=== PATIENT | female | born 2000 | race African-American/Black ===

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

== ENCOUNTER 2022-01-25 14:24 | Emergency (ER) | payer OTHER, SELFPAY ==
[2022-01-25 14:26] VITALS: BP 140/87; PULSE 87; RESP 16; TEMP 36.7; O2SAT 100
[2022-01-25 14:52] LABS: Appearance Urine Clear (Clear); Bilirubin Urine 1+ (Negative); Blood Urine Negative (Negative); Color Urine Yellow (Yellow); Glucose Urine UA Negative (Negative); Ketones Urine 3+ mg/dL (Negative); Leukocyte Esterase Ur Negative LEU/UL (Negative); Nitrate Urine Negative (Negative); Protein Urine Trace mg/dL (Negative); Specific Grav Ur 1.025 (1.001-1.035); pH Urine 6.5 (5.0-9.0)
[2022-01-25 14:57] LABS: Mucus Urine Heavy /lpf; Squamous Epithelial Cell Urine Many /hpf (Few)
[2022-01-25 14:59] LABS: Add Urine Microscopic? YES
[2022-01-25] MEDS: metroNIDAZOLE 250 MG TABLET 500 MG PO (15:18)
[2022-01-25] MEDS: DOXYCYCLINE HYCLATE 100 MG TABLET PO (15:18)
[2022-01-25] MEDS: cefTRIAXone 1 GM VIAL 0.5 GM IM (15:18)
--- NOTE | 2022-01-25 15:30 | ED.FEMALEGU ---
HPI - Female Genitourinary General Chief complaint: Urogenital-Female Stated complaint: STI exposure Time Seen by Provider: 01/25/22 14:40 History of Present Illness HPI Narrative: 21-year-old female presents here wanting to have STD check. She denies any symptoms, no discharge, is not aware of any STD exposure, however she states that she has been having unprotected intercourse with some new partners and she would like To be tested for everything. No dysuria. Related Data Allergies Allergy/AdvReac Type Severity Reaction Status Date / Time No Known Allergies Allergy Mild Verified 01/25/22 14:38 Review of Systems Review of Systems: CONST: No fever. HEENT: No sore throat C/V: No chest pain RESP: No cough GI: No nausea or vomiting : No dysuria. M/S: No joint pain. SKIN: No rash. NEURO: [No headache or focal numbness or weakness] PSYCH: [No depression] PMFSH Past Medical History Medical History (Updated 01/25/22 @ 17:35 by Stephanie Hernadez MD) Chlamydia Surgical History Surgical History (Updated 01/25/22 @ 17:35 by Stephanie Hernadez MD) No significant past surgical history Social History Social History Gender identity (if verbalized by the patient): Male Exam Narrative: EXAMINATION OF ORGAN SYSTEMS/BODY AREAS: Constitutional: Vital signs per nursing GENERAL: [No acute distress, non-toxic appearing.] HEAD: Normal with no signs of head trauma. EYES: EOMI, conjunctiva normal ENT: Hearing grossly intact LUNGS: Nonlabored breathing. HEART: [Regular rate and rhythm] ABD: [Soft], [nontender to palpation] : Patient declined pelvic exam EXT: Normal range of motion SKIN: [No rashes or lesions.] NEURO: [Alert and oriented x 3. No gross focal sensory or strength deficits.] PSYCH: Normal affect Course Course Emergency Course: 21-year-old female who was requesting STD check, no symptoms, she is amenable to empiric treatment at this time, vital signs stable, abdominal exam nontender, she declined pelvic, I will treat her empirically and send all STD testing including HIV, syphilis, gonorrhea and chlamydia. UA appears contaminated with multiple squamous cells. Stable for discharge home and followup with PCP. Vital Signs Vital signs: Vital Signs Temperature 98.1 F 01/25/22 14:26 Pulse Rate 87 01/25/22 14:26 Respiratory Rate 16 01/25/22 14:26 Blood Pressure 140/87 01/25/22 14:26 Pulse Oximetry 100 01/25/22 14:26 Oxygen Delivery Room Air 01/25/22 14:26 Temperature 98.1 F 01/25/22 14:26 Pulse Rate 87 01/25/22 14:26 Respiratory Rate 16 01/25/22 14:26 Blood Pressure 140/87 01/25/22 14:26 Pulse Oximetry 100 01/25/22 14:26 Oxygen Delivery Room Air 01/25/22 14:26 MDM - Female Genitourinary Lab Data Labs: Lab Results 01/25/22 01/25/22 01/25/22 Range/Units 14:40 15:15 15:15 Urine Color Yellow (Yellow) Urine Appearance Clear (Clear) Urine pH 6.5 (5.0-9.0) Ur Specific [place] 1.025 (1.001-1.035) Urine Protein Trace (Negative) mg/dL Urine Glucose (UA) Negative (Negative) mg/dL Urine Ketones 3+ H (Negative) mg/dL Ur Blood (Man) Negative (Negative) Urine Nitrate Negative (Negative) Urine Bilirubin 1+ H (Negative) Urine Urobilinogen 1.0 (<2.0) mg/dL Leukocyte Esterase Rfl Negative (Negative) MICHELLE/UL Urine RBC 3-5 H (0-2) /hpf Urine WBC 4-6 H /hpf Ur Squamous Epith Cells Many H (Few) /hpf Urine Mucus Heavy H /lpf RPR Pending HIV 1&2 Ab/P24 Ag 4thGn Negative (Negative) UCG Bedside Result Negative Reference Range: Negative Discharge Plan Discharge Clinical Impression: Concern about STD in female without diagnosis, Urinary tract infection Patient Disposition: Home, Self-Care Condition: Stable Instructions: Antibiotic Form, Sexually
[2022-01-25 16:23] LABS: HIV 1/2 Ab P24 Ag Result Negative (Negative)
[2022-01-27 06:27] LABS: Rapid Plasma Reagin Non-Reactive (NonReactive)
== END 2022-01-25 15:44 | disposition home or self-care (01) ==
PROVIDERS: Emergency Medicine; Emergency Provider Emergency Medicine; PCP Family Medicine
DX: Z11.3 Encounter for screening for infections with a predominantly sexual mode of transmission (principal); N39.0 Urinary tract infection, site not specified
CPT/HCPCS: 36415; 81001; 81025; 86592; 86703; 96372; 99283; A9270; G0432; J0696

== ENCOUNTER 2022-07-01 19:05 | Emergency (ER) | payer OTHER, SELFPAY ==
[2022-07-01 19:30] VITALS: BP 138/92; PULSE 84; RESP 20; TEMP 37.3; O2SAT 100
[2022-07-01 21:07] LABS: Influenza A QL RT-PCR Positive (Negative); Influenza B QL RT-PCR Negative (Negative); SARS-CoV-2 RNA PCR Negative
[2022-07-01] MEDS: SODIUM CHLORIDE 0.9% IV 1,000 ML 999 ML IV CONT (22:23)
[2022-07-01 22:39] LABS: Basophils Percent Auto 0.4 % (0.2-1.2); Eosinophils Percent Auto 0.2 % (0-4.4); Hematocrit 36.4 % (37.0-47.0); Immature Granulocyte Absolute 0.03 K/mm3 (0.00-0.031); Immature Granulocyte Percent A 0.6 % (0-0.5); Lymphocytes Absolute Auto 0.41 K/mm3 (0.9-3.2); Lymphocytes Percent Auto 8.2 % (18.3-44.2); Mean Corpuscular HGB Conc 35.7 g/dl (32-36); Mean Corpuscular Hemoglobin 29.7 pg (26-34); Mean Corpuscular Volume 83.1 fl (80-100); Mean Platelet Volume 11.2 fl (7.4-10.4); Monocytes Absolute Auto 0.6 K/mm3 (0.1-0.6); Monocytes Percent Auto 11.8 % (2.6-8.5); Neutrophils Absolute Auto 3.9 K/mm3 (1.3-6.7); Neutrophils Percent Auto 78.8 % (45.5-73.1); Platelet Count Result 212 k/mm3 (150-375); Red Blood Count 4.38 M/mm3 (4.2-5.4); Red Cell Distribution Width 12.9 % (11.5-14.5)
[2022-07-01 22:41] LABS: Appearance Urine Clear (Clear); Bilirubin Urine Negative (Negative); Blood Urine Trace-intact (Negative); Color Urine Yellow (Yellow); Glucose Urine UA Negative (Negative); Ketones Urine 3+ mg/dL (Negative); Leukocyte Esterase Ur Trace LEU/UL (Negative); Nitrate Urine Negative (Negative); Protein Urine Negative (Negative); Specific Grav Ur 1.015 (1.001-1.035); Urobilinogen Urine 0.2 mg/dL (<2.0)
[2022-07-01 22:45] LABS: Add Urine Microscopic? YES; Mucus Urine Rare /lpf; RBC Urine 0-2 /hpf (0-2); Squamous Epithelial Cell Urine Moderate /hpf (Few)
[2022-07-01 22:52] LABS: Alanine Aminotransferase 18 U/L (6-35); Albumin Level 4.9 g/dL (3.7-5.6); Alkaline Phosphatase 67 U/L (45-116); Anion Gap 10 mmol/L (8-16); Aspartate Amino Transferase 32 U/L (14-36); Bilirubin,Total 1.1 mg/dL (0.2-1.3); Blood Urea Nitrogen 5 mg/dL (8-21); Carbon Dioxide 24 mmol/L (22-30); Chloride 100 mmol/L (98-107); Estimated Glomerular Filt Rate > 60; Glucose 94 mg/dL (65-110); Potassium 3.6 mmol/L (3.4-5.0); Sodium 134 mmol/L (134-143)
--- NOTE | 2022-07-01 22:58 | ED.ABDPAIN ---
HPI - Abdominal Pain General Chief Complaint: Abdominal Pain Stated Complaint: FLU S/SX Time Seen by Provider: 07/01/22 20:55 History of Present Illness HPI narrative: 21-year-old female presents the emergency room with multiple complaints. Patient states that she has a productive and painful cough, body aches, fever, lower abdominal pain. Patient states that she found out she was yesterday. Patient patient denies dysuria, diarrhea or constipation. Denies vaginal bleeding. Denies shortness of breath or difficulty breathing. Denies fever. Patient states that she took [id number] cough and cold preparation yesterday and today for her symptoms. Related Data Allergies Allergy/AdvReac Type Severity Reaction Status Date / Time No Known Allergies Allergy Mild Verified 01/25/22 14:38 Review of Systems Review of Systems: CONSTITUTIONAL: Denies fever, chills, or sweats. EYES: Denies visual changes, redness, or discharge. ENT: Denies rhinorrhea, congestion, sore throat, or otalgia. CARDIOVASCULAR: Reports chest pain RESPIRATORY: Reports cough GASTROINTESTINAL: Reports lower abdominal pain GENITOURINARY: Denies dysuria or hematuria. SKIN: Denies rash or itching. MUSCULOSKELETAL: Denies back pain, joint pain, or myalgia. NEUROLOGIC: Denies headache, numbness, dizziness, or weakness. PSYCHIATRIC: Denies anxiety or depression. [facility] Past Medical History Medical History (Updated 07/01/22 @ 23:49 by Heron Garcia APRN) Chlamydia Surgical History Surgical History (Updated 01/25/22 @ 17:35 by Stephanie Hernadez MD) No significant past surgical history Social History Social History Gender identity (if verbalized by the patient): Male Exam Narrative: GENERAL: Well-appearing, well-nourished, no physical limitations, and in no acute distress. HEAD: Normocephalic, atraumatic. EYES: Conjunctivae normal, PERRLA and EOMI. CHEST: Clear to auscultation. No respiratory distress. No wheezes rales or rhonchi. HEART: Regular rate and rhythm. No murmur heard. Normal peripheral pulses. ABDOMEN: Soft, suprapubic tenderness, nondistended, normal active bowel sounds. BACK: No CVA tenderness EXTREMITIES: Normal range of motion. No edema. No clubbing or cyanosis SKIN: Warm, dry, no rash. No noted wounds NEURO: No focal deficits. Alert and oriented x3. MAEW. CN's II-XI intact bilaterally, normal gait PSYCH: Cooperative. Normal mood and affect. Course Course Emergency Course: Patient reports improvement after a liter of fluid. Vital Signs Vital signs: Vital Signs Temperature 37.3 C 07/01/22 19:30 Pulse Rate 84 07/01/22 19:30 Respiratory Rate 20 07/01/22 19:30 Blood Pressure 138/92 H 07/01/22 19:30 Pulse Oximetry 100 07/01/22 19:30 Oxygen Delivery Room Air 07/01/22 19:30 Temperature 37.3 C 07/01/22 19:30 Pulse Rate 84 07/01/22 19:30 Respiratory Rate 20 07/01/22 19:30 Blood Pressure 138/92 H 07/01/22 19:30 Pulse Oximetry 100 07/01/22 19:30 Oxygen Delivery Room Air 07/01/22 19:30 MDM - Abdominal Pain Lab Data Result diagrams: 07/01/22 22:22 07/01/22 22:22 Labs: Lab Results 07/01/22 07/01/22 07/01/22 Range/Units 20:03 22:21 22:22 WBC 5.0 (4.5-10.0) K/mm3 RBC 4.38 (4.2-5.4) M/mm3 Hgb 13.0 (12.0-15.0) g/dL Hct 36.4 L (37.0-47.0) % MCV 83.1 (80-100) fl MCH 29.7 (26-34) pg MCHC 35.7 (32-36) g/dl RDW 12.9 (11.5-14.5) % Plt Count 212 (150-375) k/mm3 MPV 11.2 H (7.4-10.4) fl Immature Gran % (Auto) 0.6 H (0-0.5) % Neut % (Auto) 78.8 H (45.5-73.1) % Lymph % (Auto) 8.2 L (18.3-44.2) % Teller % (Auto) 11.8 H (2.6-8.5) % Eos % (Auto) 0.2 (0-4.4) % Baso % (Auto) 0.4 (0.2-1.2) % Lymph # (Auto) 0.41 L (0.9-3.2) K/mm3 Teller # (Auto) 0.6 (0.1-0.6) K/mm3 Eos # (Auto) 0.0 (0-0.3) K/mm3 Baso # (Auto) 0.0
[2022-07-01 23:07] LABS: Beta HCG Quantitative 28.69 mIU/ML; Troponin I < 0.012 ng/mL (0.000-0.034)
[2022-07-02 00:04] VITALS: BP 130/84; PULSE 82; RESP 20; O2SAT 98
== END 2022-07-02 00:05 | disposition home or self-care (01) ==
PROVIDERS: Emergency Provider Nurse Practitioner Family; PCP Family Medicine
DX: J10.1 Influenza due to other identified influenza virus with other respiratory manifestations (principal); Z20.822 Contact with and (suspected) exposure to COVID-19
CPT/HCPCS: 36415; 80053; 81001; 84484; 84702; 85025; 87502; 96360; 99284; J7030; U0003; U0005

== ENCOUNTER 2024-03-19 15:22 | Emergency (ER) | payer OTHER, SELFPAY ==
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
[2024-03-19 15:40] VITALS: BP 147/77; PULSE 88; RESP 16; TEMP 36.7; O2SAT 100
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
--- NOTE | 2024-03-19 19:04 | PC.NURSE ---
patient to cat scan
[2024-03-19] MEDS: ACETAMINOPHEN 500 MG TABLET 1000 MG PO (19:18)
[2024-03-19 21:03] VITALS: BP 117/67; PULSE 68; RESP 16; O2SAT 98
== END 2024-03-19 21:04 | disposition home or self-care (01) ==
PROVIDERS: Emergency Provider Physician Assistant; PCP Family Medicine
DX: S00.12XA Contusion of left eyelid and periocular area, initial encounter (principal); S00.11XA Contusion of right eyelid and periocular area, initial encounter; M25.511 Pain in right shoulder; V49.40XA Driver injured in collision with unspecified motor vehicles in traffic accident, initial encounter
CPT/HCPCS: 70450; 70486; 72125; 73030; 99284; A4565; A9270

== ENCOUNTER 2025-01-09 17:50 | Emergency (ER) | payer OTHER, SELFPAY ==
[2025-01-09 17:51] VITALS: BP 149/79; PULSE 89; RESP 16; TEMP 36.3; O2SAT 99
--- OUTSIDE RECORDS SUMMARY | 2025-01-09 17:51 | XMS_ITS | Clinical Summary ---
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 Gender Identity Not on file Sexual Orientation Not on file Plan of Treatment Health Maintenance Due Date Last Done Comments Hepatitis C Virus (HCV) Screening 2002 TdaP Immunization 2002 Human Papillomavirus (HPV) Immunization (1 - 3-dose series) 2017 Meningococcal B Immunization (1 of 2 - Standard) 2018 Hepatitis B Immunization (1 of 3 - 19+ 3-dose series) 2021 Pap Smear 2023 Influenza Immunization (#1) 2024 SARS-COV-2 Immunization ( season) 2024 Respiratory Syncytial Virus (RSV) Immunization (Adult) (1 - 1-dose 75+ series) 2077 Meningococcal Immunization (ACWY) Aged Out No longer eligible based on patient's age to complete this topic Pneumococcal Immunization Combined Aged Out No longer eligible based on patient's age to complete this topic Rotavirus Immunization Aged Out No lo nger eligible based on patient's age to complete this topic
--- OUTSIDE RECORDS SUMMARY | 2025-01-09 17:51 | XMS_ITS | Clinical Summary ---
Author Organization [facility] Address [address] [place] [id number] Care Team Providers Care Certified Nurse Operating Room Name Role Phone None, Provider MD Primary Care Provider Unavaila ble Allergies Active Allergy Reactions Criticality Noted Date Comments Morphine Hives 12/08/2024 Medications nitrofurantoin, macrocrystal-mo nohydrate, (MACROBID) 100 MG capsule 12/05/2024 Active amoxicillin-cla vulanate (AUGMENTIN) 875-125 MG tablet Take 1 tablet (875 mg total) by mouth 2 (two) times daily for 7 days. 14 tablet 12/08/2024 trimethoprim-po lymyxin b (POLYTRIM) ophthalmic solution Place 1 drop into the right eye every 4 (four) hours for 7 days. 10 mL 12/08/2024 5 Encounters Date Type Department Care Team Description 12/08/2024 10:00 AM CDT - 12/08/2024 10:57 AM CDT Hospital Encounter [facility] Care [address] [place] [id number] Paula Finch FNP Eye Swelling Discharge Disposition: Home or Self Care (Routine Discharge) 12/08/2024 Travel from Last 3 Months Social History Tobacco Use Types Packs/Day Years Used Date Smoking Tobacco: Never Smokeless Tobacco: Current Tobacco Cessation:Ready to Q uit: Not Asked; Counseling Given: Not Answered Comments No Sex and Gender Information Value Date Recorded Sex Assigned at Female 12/08/2024 9:50 AM CDT Legal Sex Female 7:50 PM CDT Gender Identity Not on file Sexual Orientation Not on file Last Filed Vital Signs Vital Sign Reading Time Taken Comments Blood Pressure 147/84 12/08/2024 10:05 AM CDT Pulse 76 12/08/2024 10:05 AM CDT Temperature 36.9 C (98.5 F) 12/08/2024 10:05 AM CDT Respiratory Rate 18 12/08/2024 10:05 AM CDT Oxygen Saturation 100% 12/08/2024 10:05 AM CDT Inhaled Oxygen Concentration - - Weight 70.8 kg (156 lb) 12/08/2024 10:05 AM CDT Height 149.9 cm (4' 11 ) 12/08/2024 10:05 AM CDT Body Mass Index 31.51 12/08/2024 10:05 AM CDT Plan of Treatment Health Maintenance Due Date Last Done Comments Cervical Cancer Screening Pap Smear (Age 21 to 29) Every 3 Years 2002 Cervical Cancer Screening 2002 Annual Physical 2005 Meningococcal B Vaccine (1 of 2 - Standard) 2018 Hepatitis C 2020 DTaP, Tdap and Td Vaccines (7 - Td or Tdap) 11/29/2023 11/28/2013, 04/20/2007, 05/24/2004, Additional history exists COVID-19 Vaccine ( - season) 2024 05/02/2022, 06/14/2021, 05/21/2021 Hepatitis B Vaccines Completed 09/05/2003, 02/22/2003, 2002 Pneumococcal Vaccine: Pediatrics (0 to 5 Years) and At-Risk Patients (6 to 49 Years) Completed 05/27/2005, 10/23/2003, 04/24/2003 Meningococcal Vaccine Aged Out 11/28/2013 No xavi janis eligible based on patient's age to complete this topic HPV Vaccines Completed 01/31/2015, 10/2013, 11/28/2013 RSV Immunizations Under 20 Months Aged Out No longer eligible based on patient's age to complete this topic Insurance Care Teams Certified Nurse Operating Room Relationship Specialty Start Date End Date None, Provider, MD PCP - General UNKNOWN PHYSICIAN SPECIALTY 12/08/24
[2025-01-09] MEDS: ONDANSETRON INJ 4 MG/2 ML VIAL IV PUSH (18:18)
[2025-01-09] MEDS: LACTATED RINGERS 1,000 ML 999 ML IV CONT (18:18)
[2025-01-09 18:32] LABS: Basophils Percent Auto 0.1 % (0.2-1.2); Eosinophils Percent Auto 0.2 % (0-4.4); Hematocrit 40.2 % (37.0-47.0); Hemoglobin 13.9 g/dL (12.0-15.0); Immature Granulocyte Absolute 0.05 K/mm3 (0.00-0.031); Immature Granulocyte Percent A 0.5 % (0-0.5); Lymphocytes Absolute Auto 0.49 K/mm3 (0.9-3.2); Lymphocytes Percent Auto 4.9 % (18.3-44.2); Mean Corpuscular HGB Conc 34.6 g/dl (32-36); Mean Corpuscular Hemoglobin 28.6 pg (26-34); Mean Corpuscular Volume 82.7 fl (80-100); Mean Platelet Volume 11.1 fl (7.4-10.4); Monocytes Absolute Auto 0.6 K/mm3 (0.1-0.6); Monocytes Percent Auto 5.7 % (2.6-8.5); Neutrophils Percent Auto 88.6 % (45.5-73.1); Platelet Count Result 240 k/mm3 (150-375); Red Blood Count 4.86 M/mm3 (4.2-5.4); Red Cell Distribution Width 12.9 % (11.5-14.5); White Blood Count 10.1 K/mm3 (4.5-10.0)
--- NOTE | 2025-01-09 18:33 | ED_ITS ---
HPI - General Adult General Chief complaint: Nausea/Vomiting/Diarrhea Stated complaint: NVD,headache Time Seen by Provider: 01/09/25 17:59 History of Present Illness HPI narrative: 24-year-old female present to the emergency department for evaluation for nausea vomiting and episode of diarrhea. Patient reports that she has had multiple episodes of nausea and vomiting and does have some upper abdominal pain. Patient does report that she has have issues with nausea vomiting monthly but states that is typically associated with her menstrual cycle. Patient does admit to daily THC use. Related Data Home Medications ?Medication ?Instructions ?Recorded ?Confirmed ?Last Taken ?Type No Home Medications 03/26/24 03/26/24 Unknown History Allergies Allergy/AdvReac Type Severity Reaction Status Date / Time morphine Allergy Chest Pain Verified 01/09/25 17:51 Review of Systems 2 Review of Systems: All systems reviewed & are unremarkable except as noted in HPI and below PMFSH Past Medical History Medical History (Updated 01/09/25 @ 19:34 by Jose Wolfe MD) Wellness examination Chlamydia Surgical History Surgical History No significant past surgical history Family History Family History Father Alcoholism Mother Hypertension Social History Social History (Updated 03/24/24 @ 14:49 by Yoana Guidry) Social History: Single Years smoked: 2 Smoking status: Smoker, status unknown (vaping nicotine) Tobacco type: e-cigarettes/vaping Alcohol intake: current Alcohol use details: Occasionally Substance use: current Substance use type: marijuana Do You Feel Safe in your Home?: Yes Lack of Transportation: No Lack of Food: Never True Current Housing: I Have Housing Concerned About Future Housing: No Difficulty Paying Gas/Electric Bills: No Difficulty Paying for Meds: No Currently Unemployed: No Education: Don't Know Difficulty w/ Childcare or Family Care: No Living arrangements: with family Occupation/Education: occupation 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 HEAD: normocephalic, atraumatic. EYES: PERRLA/EOMI, conjunctivae clear. NOSE: Normal no drainage EARS:TMS clear with good light reflex. THROAT: Pharynx clear, no exudate. NECK: Supple. No adenopathy, no masses. RESPIRATORY: Airway patent, respirations nonlabored. Clear to auscultation bilaterally, no rales, rhonchi, wheezing. CARDIOVASCULAR: Regular rate and rhythm without murmurs rubs or gallops. ABDOMINAL: Soft, nontender, nondistended, normal bowel sounds MUSCULOSKELETAL: Moves all extremities. Strength/ROM intact, No edema, No calf tenderness. NEURO: Alert. Cranial nerves II through XII intact. grossly intact SKIN: Warm, dry. Normal Color Course Vital Signs Vital signs: Vital Signs Temperature 97.3 F L 01/09/25 17:51 Pulse Rate 89 01/09/25 17:51 Respiratory Rate 16 01/09/25 17:51 Blood Pressure 149/79 H 01/09/25 17:51 Pulse Oximetry 99 01/09/25 17:51 Oxygen Delivery Room Air 01/09/25 17:51 Temperature 97.3 F L 01/09/25 17:51 Pulse Rate 85 01/09/25 19:16 Respiratory Rate 16 01/09/25 19:16 Blood Pressure 149/81 H 01/09/25 19:16 Pulse Oximetry 100 01/09/25 19:16 Oxygen Delivery Room Air 01/09/25 17:51 Medical Decision Making [facility] Narrative Medical decision making narrative: 24-year-old female present to the emergency department for evaluation for nausea vomiting with associated upper abdominal pain. Patient was afebrile but does have a leukocytosis of 10.1 hemoglobin of 13.9. Patient has no acute abnormalities on her CMP UA was positive for ketones was also high for white blood cells many squamous cells and I bacteria. Urine culture was ordered. Patient was treated with IV fluids. On re-evaluation patient states she does feel improved. Vital Signs Vital Signs: Vital Signs Temperature 97.3 F L 01/09/25 17:51 Pulse Rate 89 01/09/25 17:51 Respiratory Rate 16 01/09/25 17:51 Blood Pressure 149/79 H 01/09/25 17:51 Pulse Oximetry 99 01/09/25 17:51 Oxygen Delivery Room Air 01/09/25 17:51 Temperature 97.3 F L 01/09/25 17:51 Pulse Rate 85 01/09/25 19:16 Respiratory Rate 16 01/09/25 19:16 Blood Pressure 149/81 H 01/09/25 19:16 Pulse Oximetry 100 01/09/25 19:16 Oxygen Delivery Room Air 01/09/25 17:51 Lab Data 01/09/25 18:16 01/09/25 18:16 Labs: Lab Results 01/09/25 01/09/25 Range/Units 18:05 18:16 WBC 10.1 H (4.5-10.0) K/mm3 RBC 4.86 (4.2-5.4) M/mm3 Hgb 13.9 (12.0-15.0) g/dL Hct 40.2 (37.0-47.0) % MCV 82.7 (80-100) fl MCH 28.6 (26-34) pg MCHC 34.6 (32-36) g/dl RDW 12.9 (11.5-14.5) % Plt Count 240 (150-375) k/mm3 MPV 11.1 H (7.4-10.4) fl Immature Gran % (Auto) 0.5 (0-0.5) % Neut % (Auto) 88.6 H (45.5-73.1) % Lymph % (Auto) 4.9 L (18.3-44.2) % [place] % (Auto) 5.7 (2.6-8.5) % Eos % (Auto) 0.2 (0-4.4) % Baso % (Auto) 0.1 L (0.2-1.2) % Lymph # (Auto) 0.49 L (0.9-3.2) K/mm3 [place] # (Auto) 0.6 (0.1-0.6) K/mm3 Eos # (Auto) 0.0 (0-0.3) K/mm3 Baso # (Auto) 0.0 (0.0-0.1) K/mm3 Abs Immat Gran (auto) 0.05 H (0.00-0.031) K/mm3 Absolute Neuts (auto) 9.0 H (1.3-6.7) K/mm3 Absolute Nucleated RBC 0.000 (0.0-0.012) K/mm3 Nucleated RBC % 0.0 (0.0-0.2) % Sodium 137 (137-145) mmol/L Potassium 3.5 (3.4-5.0) mmol/L Chloride 103 (98-107) mmol/L Carbon Dioxide 24 (22-30) mmol/L Anion Gap 10 (4-12) mmol/L BUN 14 D (7-17) mg/dL Creatinine 0.70 (0.7-1.0) mg/dL Estim Creat Clear Calc Not Reportable Estimated GFR > 60 (59 - ) Glucose 96 (65-110) mg/dL Calcium 9.1 (8.4-10.2) mg/dL Total Bilirubin 1.5 H (0.2-1.3) mg/dL AST 24 (14-36) U/L ALT 15 (6-35) U/L Alkaline Phosphatase 81 (38-126) U/L Total Protein 8.0 (6.3-8.2) g/dL Albumin 4.7 (3.5-5.1) g/dL Urine Color Dark yellow (Yellow) Urine Appearance Cloudy H (Clear) Urine pH 5.5 (5.0-9.0) Ur Specific [place] 1.034 (1.001-1.035) Urine Protein 1+ H (Negative) mg/dL Urine Glucose (UA) Negative (Negative) mg/dL Urine Ketones 2+ H (Negative) mg/dL Ur Blood (Man) Negative (Negative) Urine Nitrate Negative (Negative) Urine Bilirubin Negative (Negative) Urine Urobilinogen 1.0 (<2.0) mg/dL Leukocyte Esterase Rfl Negative (Negative) MICHELLE/UL Urine RBC 0-2 (0-2) /hpf Urine WBC 6-10 H (0-3) /hpf Ur Squamous Epith Cells Many H (Few) /hpf Urine Bacteria 3+ H /hpf Urine Casts 3-5 Hyaline Casts Present (None) /lpf POC Urine HCG, Qual Negative (Negative) Discharge Plan Discharge Clinical Impression: Gastritis, Esophagitis, Nausea & vomiting Patient Disposition: Home Condition: Stable Instructions: Antibiotic Form, Clear Liquid Diet (ED), Acute Nausea and Vomiting (ED) Additional Instructions: Zofran as needed for nausea control. Clear liquid diet for the next 1-3 days. Advance to bland diet as tolerated. Omeprazole as directed to help with gastritis/esophagitis. Have close follow-up with GI. If you have any worsening symptoms please call or return to the emergency department. Continue to educate yourself on cannabinoid hyperemesis syndrome. Patient Language: Jordanian Prescriptions: New ondansetron 4 mg tablet,disintegrating 4 mg PO Q8H PRN (Reason: nausea and vomiting) Qty: 14 0RF No Action No Home Medications Follow-up/Referrals: En Vergara MD [Physician] - Janis Emery MD [Primary Care Provider] -
[2025-01-09 18:45] LABS: BEDSIDEPREGUCG Negative (Negative)
[2025-01-09 18:46] LABS: Alanine Aminotransferase 15 U/L (6-35); Albumin Level 4.7 g/dL (3.5-5.1); Alkaline Phosphatase 81 U/L (38-126); Anion Gap 10 mmol/L (4-12); Aspartate Amino Transferase 24 U/L (14-36); Bilirubin,Total 1.5 mg/dL (0.2-1.3); Blood Urea Nitrogen 14 mg/dL (7-17); Calcium 9.1 mg/dL (8.4-10.2); Carbon Dioxide 24 mmol/L (22-30); Chloride 103 mmol/L (98-107); Estimated Glomerular Filt Rate > 60; Glucose 96 mg/dL (65-110); Potassium 3.5 mmol/L (3.4-5.0); Sodium 137 mmol/L (137-145)
[2025-01-09 19:08] LABS: Add Urine Microscopic? YES; Appearance Urine Cloudy (Clear); Bacteria Urine 3+ /hpf; Bilirubin Urine Negative (Negative); Blood Urine Negative (Negative); Color Urine Dark Yellow (Yellow); Glucose Urine UA Negative (Negative); Hyaline Casts Urine Present /lpf; Ketones Urine 2+ mg/dL (Negative); Leukocyte Esterase Ur Negative LEU/UL (Negative); Nitrate Urine Negative (Negative); Protein Urine 1+ mg/dL (Negative); RBC Urine 0-2 /hpf (0-2); Specific Grav Ur 1.034 (1.001-1.035); Squamous Epithelial Cell Urine Many /hpf (Few); pH Urine 5.5 (5.0-9.0)
[2025-01-09 19:16] VITALS: BP 149/81; PULSE 85; RESP 16; O2SAT 100
[2025-01-09] MEDS: BELLADONNA ALK/PHENOB ELIX 10 ML, MAG HYDROX/ALUMINUM HYD/SIMETH 30 ML, LIDOCAINE 2% VI... PO (19:25)
[2025-01-09] MEDS: FAMOTIDINE 20 MG/2 ML VIAL IV PUSH (19:26)
[2025-01-09] MEDS: PANTOPRAZOLE SODIUM IV 40 MG VIAL IV PUSH (19:26)
[2025-01-09 19:46] VITALS: BP 142/70; PULSE 92; RESP 16; O2SAT 100
== END 2025-01-09 19:48 | disposition home or self-care (01) ==
PROVIDERS: Emergency Provider Emergency Medicine; PCP Family Medicine
DX: K29.70 Gastritis, unspecified, without bleeding (principal); K20.90 Esophagitis, unspecified without bleeding; R11.2 Nausea with vomiting, unspecified; F17.290 Nicotine dependence, other tobacco product, uncomplicated
CPT/HCPCS: 36415; 80053; 81001; 81025; 85025; 96361; 96374; 96375; 99284; A9270; J2405; J2470; J7120

== ENCOUNTER 2025-05-05 02:21 | Day surgery (SDC) | payer OTHER, SELFPAY ==
[2025-04-25 08:58] VITALS: BMI 29.3
--- OUTSIDE RECORDS SUMMARY | 2025-05-05 02:23 | XMS_ITS | Clinical Summary ---
Author Organization [facility] Address [address] [place] [id number] Care Team Providers Care Rn Neurosurgical Name Role Phone None, Provider MD Primary Care Provider Unavaila ble Allergies Active Allergy Reactions Criticality Noted Date Comments Morphine Hives 12/08/2024 Medications nitrofurantoin, macrocrystal-monoh ydrate, (MACROBID) 100 MG capsule 12/05/2024 Acti ve Social History Tobacco Use Types Packs/Day Years [...] 10:05 AM CDT Height 149.9 cm (4' 11) 12/08/2024 10:05 AM CDT Body Mass Index [...] 05/24/2004, Additional history exists COVID-19 Vaccine ( season) 2025 05/02/2022, 06/14/2021, 05/21/2021 Hepatitis B Vaccines Completed [...] patient's age to complete this topic Insurance [facility] Care Teams Rn Neurosurgical Relationship Specialty Start Date End Date None, Provider, MD PCP - General UNKNOWN PHYSICIAN SPECIALTY 12/08/24
--- OUTSIDE RECORDS SUMMARY | 2025-05-05 02:23 | XMS_ITS | Clinical Summary ---
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
[2025-05-05] MEDS: LACTATED RINGERS 1,000 ML 150 ML IV CONT (06:44)
[2025-05-05 06:45] VITALS: BP 143/75; PULSE 83; RESP 16; TEMP 36.1; O2SAT 100
--- NOTE | 2025-05-05 07:12 | PM.HPGS ---
History of Present Illness History of Present Illness Consent: Risks, benefits, and alternatives have been discussed and questions answered. Patient agrees to proceed with procedure. Chief complaint: Epigastric pain Narrative: Caleb Hay is a 24 year old female here for first EGD, h/o nausea on zofran and gerd, also loose stools Review of Systems Review of Systems: All systems reviewed & are unremarkable except as noted in HPI and below PMFSH Past Medical History Medical History (Updated 05/05/25 @ 07:13 by En Vergara MD) GERD (gastroesophageal reflux disease) Nausea Epigastric pain Wellness examination Chlamydia Surgical History Surgical History No significant past surgical history Family History Family History Father Alcoholism Mother Hypertension Social History Social History Social History: Single Years smoked: 4 Smoking status: Smoker, status unknown Tobacco type: e-cigarettes/vaping Alcohol intake: current Drinks per week: 3 Substance use: current Substance use type: marijuana Do You Feel Safe in your Home?: Yes Lack of Transportation: No Lack of Food: Never True Current Housing: I Have Housing Concerned About Future Housing: No Difficulty Paying Gas/Electric Bills: No Difficulty Paying for Meds: No Currently Unemployed: No Education: Don't Know Difficulty w/ Childcare or Family Care: No Living arrangements: alone Occupation/Education: occupation 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 Gender identity (if verbalized by the patient): Female Sexual Orientation (if Verbalized by the Patient): Straight or Heterosexual Spiritual care concerns: No Meds Home Medications and Allergies Home Medications ?Medication ?Instructions ?Recorded ?Confirmed ?Type hydrocortisone 2.5 % topical cream 1 applic RECTAL BID PRN 01/26/25 04/25/25 Rx with perineal applicator hemorrhoids #30 grams ondansetron 4 mg disintegrating 4 mg PO Q8H PRN nausea and 01/26/25 05/05/25 Rx tablet vomiting #14 tabs Allergies Allergy/AdvReac Type Severity Reaction Status Date / Time morphine Allergy Chest Pain Verified 05/05/25 06:24 Vital Signs Vital Signs - 24 hr 05/05/25 06:45 Temperature 96.9 F L Pulse Rate 83 Respiratory Rate 16 Blood Pressure 143/75 H Pulse Oximetry 100 Oxygen Delivery Room Air Exam Const: General: comfortable and no acute distress HENMT: Face/Nose/Sinus: Normal nares present Eyes: General: appearance normal, both eyes and all related structures Neck: Neck: no JVD Resp: Auscultation: clear to auscultation bilaterally Cardio: Rate: regular rate Rhythm: regular rhythm GI: Inspection: non-distended GI Palp: Yes Soft to palpation Skin: General skin exam: normal color Neuro: Speech: normal speech Extrem: General: normal to inspection Psych: Mental Status: mental status grossly normal Assessment and Plan Assessment and plan (1) Nausea: Code(s): R11.0 - Nausea Status: Acute Assessment and Plan: egd with bx (2) GERD (gastroesophageal reflux disease): Code(s): K21.9 - Gastro-esophageal reflux disease without esophagitis Status: Acute
--- NOTE | 2025-05-05 07:30 | S_PTH ---
PATIENT: Caleb Hay LOC: [facility]#:[id number] AGE/SX: 24/F ROOM: RE05/05/[address]: En Vergara MD : 2000 BED: DIS: 05/05/2025 SPEC #: [id number] RECD: 05/05/25 07:39 STATUS: BRIELLE REJanis #: [id number] KEZIA: 05/05/25 07:[address]: En Vergara DEPT: [facility] Surgical RECD BY: Khloe Contreras ENTERED: 05/05/25 07:39 SP TYPE: Surgical OTHR DR: SURVEILLANCE CAMERA TECHNICIAN PHYSICIAN Tissues: A - Gastric Biopsy B - Small Bowel Bx Procedures: Hematoxylin and Eosin Stain Gross and Microscopic Level 4
--- NOTE | 2025-05-05 07:30 | WPDANESEPPF ---
Anes - Initial Pre Proc Eval Procedure: Operation Date: 05/05/25 07:30 Proposed Procedures p Esophagogastroduodenoscopy - En Vergara MD Date/Time: 05/05/25 07:30 Surgeon: En Vergara MD Pre Op Diagnosis: Epigastric pain Patient Data Age: 24 Gender: F Height: 1.5 m Weight: 66.5 kg Last Vital Signs Temp 36.1 C L 05/05/25 06:45 Pulse 83 05/05/25 06:45 Resp 16 05/05/25 06:45 BP 143/75 H 05/05/25 06:45 Pulse Ox 100 05/05/25 06:45 O2 Del Method Room Air 05/05/25 06:45 Allergies Allergy/AdvReac Type Severity Reaction Status Date / Time morphine Allergy Chest Pain Verified 05/05/25 06:24 Home Medications ?Medication ?Instructions ?Recorded ?Confirmed ?Type hydrocortisone 2.5 % topical cream 1 applic RECTAL BID PRN 01/26/25 04/25/25 Rx with perineal applicator hemorrhoids #30 grams ondansetron 4 mg disintegrating 4 mg PO Q8H PRN nausea and 01/26/25 05/05/25 Rx tablet vomiting #14 tabs Patient hx anesthesia problems: none Family hx anesthesia problems: none Results Review: All pre-operative results and documents have been reviewed as part of the pre-operative evaluation. [facility] Past Medical History Medical History (Updated 05/05/25 @ 07:13 by En Vergara MD) GERD (gastroesophageal reflux disease) Nausea Epigastric pain Wellness examination Chlamydia Surgical History Surgical History No significant past surgical history Family History Family History Father Alcoholism Mother Hypertension Social History Social History Social History: Single Years smoked: 4 Smoking status: Smoker, status unknown Tobacco type: e-cigarettes/vaping Alcohol intake: current Drinks per week: 3 Substance use: current Substance use type: marijuana Do You Feel Safe in your Home?: Yes Lack of Transportation: No Lack of Food: Never True Current Housing: I Have Housing Concerned About Future Housing: No Difficulty Paying Gas/Electric Bills: No Difficulty Paying for Meds: No Currently Unemployed: No Education: Don't Know Difficulty w/ Childcare or Family Care: No Living arrangements: alone Occupation/Education: occupation 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 Gender identity (if verbalized by the patient): Female Sexual Orientation (if Verbalized by the Patient): Straight or Heterosexual Spiritual care concerns: No Anes - Eval Final PreProcedure Day of Procedure 05/05/25 07:30 Patient weight: overweight Heart: regular rate and rhythm Lungs: clear to auscultation Airway: Mallampati scale class II Neurological: alert and oriented Last oral intake: >/= 8 hours ASA classification: II Emergent: no Anesthetic plan: proceed Anesthesia type and monitoring: general GIVS and standard monitoring Results Review: All pre-operative results and documents have been reviewed as part of the pre-operative evaluation. Informed Consent: The patient's anesthetic plan and its attendant risks and benefits were discussed with the patient/family/POA. Questions were solicited and answers provided to the satisfaction of the patient/family/POA.
[2025-05-05 07:32] VITALS: BP 115/64; PULSE 79; RESP 25; O2SAT 100
[2025-05-05 07:34] LABS: BEDSIDEPREGUCG Negative (Negative)
[2025-05-05 07:42] VITALS: BP 125/83; PULSE 78; RESP 26; O2SAT 100
[2025-05-05 07:52] VITALS: BP 137/89; PULSE 73; RESP 21; O2SAT 100
== END 2025-05-05 08:08 | disposition home or self-care (01) ==
PROVIDERS: Referring Provider Nurse Practitioner Family; Visit Provider Internal Medicine Gastroenterology
PROC: 0DJ08ZZ Inspection of Upper Intestinal Tract, Via Natural or Artificial Opening Endoscopic (ICD-10-PCS; CPT 43239; principal; 2025-05-05 07:30)
DX: K29.50 Unspecified chronic gastritis without bleeding (principal); R10.13 Epigastric pain; K21.9 Gastro-esophageal reflux disease without esophagitis; Z86.19 Personal history of other infectious and parasitic diseases; Z81.1 Family history of alcohol abuse and dependence; Z82.49 Family history of ischemic heart disease and other diseases of the circulatory system
CPT/HCPCS: 43239; 88305; J2704; J7120